=== PATIENT | female | born 1980 | race Asian ===

== ENCOUNTER → 2018-05-26 15:26 | Outpatient (REF) | payer OTHER, SELFPAY ==
--- NOTE | 2018-05-26 14:40 | PAPFT_PTH ---
PATIENT: BALBIR MANSFIELD LOC: [facility] U#:[id number] AGE/SX: 44/F ROOM: RE05/26/[address]: Diana Pelletier : 1980 BED: DIS: SPEC #: [id number] RECD: 05/26/18 17:39 STATUS: YING REQ #: [id number] LUKE: 05/26/18 14:[address]: Diana Pelletier DEPT: [facility] Cytology RECD BY: Gely Sethi ENTERED: 05/26/18 17:39 SP TYPE: PAPFT OTHR DR: Kathe Alvarado Tissues: 1 - CX/ENDOCX FOR PAP SMEARS Procedures: PAP THIN PREP/[facility] Screening HPV DNA PROBE Comments: [id number]
[2018-05-27 14:36] LABS: Chlamydia Result Negative; GC Result Negative; Specimen Description CERVIX
== END ==
LOC: LBN 15:26
PROVIDERS: PCP Internal Medicine; Visit Provider Obstetrics & Gynecology Gynecology
DX: Z11.3 Encounter for screening for infections with a predominantly sexual mode of transmission (principal); Z12.4 Encounter for screening for malignant neoplasm of cervix; Z11.51 Encounter for screening for human papillomavirus (HPV)
CPT/HCPCS: 87491; 87591; 88142; 87624

== ENCOUNTER → 2018-05-26 15:29 | Outpatient (CLI) | payer OTHER, SELFPAY ==
[2018-05-27 11:30] LABS: Syphilis Serology (RPR) Negative (Negative)
[2018-05-27 13:34] LABS: HBs Antibody, Qual Negative; HBs Antibody, Quant 5.1 mIU/mL; HIV-1/2 Ag & Ab Screen Negative (NEGAT); Hepatitis B Core Antibody Negative (NEGAT); Hepatitis B surface Ag Negative (NEGAT); Hepatitis C Ab w Rflx HCV PCR Negative (NEGAT)
== END ==
PROVIDERS: PCP Internal Medicine; Visit Provider Obstetrics & Gynecology Gynecology
DX: Z11.3 Encounter for screening for infections with a predominantly sexual mode of transmission (principal); Z11.4 Encounter for screening for human immunodeficiency virus [HIV]; Z11.59 Encounter for screening for other viral diseases
CPT/HCPCS: 36415; 86704; 86706; 86803; 87340; 87389; 86592

== ENCOUNTER 2023-03-25 16:18 | Outpatient (REF) | payer BC, SELFPAY ==
--- NOTE | 2023-03-25 16:15 | PAPFT_PTH ---
PATIENT: BALBIR MANSFIELD LOC: [facility] U#:[id number] AGE/SX: 42/F ROOM: RE03/25/[address]: Diana Pelletier : 1980 BED: DIS: 03/25/2023 SPEC #: [id number] RECD: 03/25/23 17:48 STATUS: YING REShawnee #: [id number] LUKE: 03/25/23 16:[address]: Diana Pelletier DEPT: [facility] Cytology RECD BY: Gely Sethi Tissues: 1 - CX/ENDOCX FOR PAP SMEARS Procedures: PAP THIN PREP/[facility] Screening HPV DNA PROBE Comments: [id number]
[2023-03-27 12:48] LABS: Chlamydia Result Negative (Negative); GC Result Negative (Negative)
== END 2023-03-25 16:19 | disposition home or self-care (01) ==
LOC: LBN 16:18
PROVIDERS: Visit Provider Obstetrics & Gynecology Gynecology
DX: Z11.3 Encounter for screening for infections with a predominantly sexual mode of transmission (principal)
CPT/HCPCS: 87491; 87591; 88142; 87624